=== PATIENT | male | born 1945 | race Caucasian/White ===

== ENCOUNTER 2021-04-16 09:33 | Emergency (ER) | payer MEDICARE, OTHER ==
[~2021-04-16] VITALS: Ht 175.3 cm; Wt 77.1 kg
[~2021-04-16 09:33] MED LIST: CIPRO500 MG PO; CRESTOR5 MG PO; FLAGYL500 MG PO
[2021-04-16 10:25] LABS: EOSINOPHIL 2.3 % (0-7); HCT 45.4 % (42.0-52.0); HGB 15.2 g/dl (13.2-18.0); LYMPHOCYTE 17.3 % (15-48); MCH 32.4 pg (25.0-31.0); MCHC 33.5 g/dL (32.0-36.0); MCV 96.8 fL (78.0-100.0); MONOCYTE 11.2 % (0-12); MPV 10.6 fL (6.0-9.5); NEUTROPHIL 67.9 % (41-80); NRBC 0; PLT 167 K/uL (150-400); RBC 4.69 M/uL (4.70-6.00); RDW 12.5 % (11.5-14.0); WBC 7.8 K/uL (4.0-10.5)
[2021-04-16 11:02] LABS: BUN/CREAT RATIO (CALC) 11.9 RATIO; CREATININE 1.34 mg/dL (0.67-1.17); POTASSIUM 4.2 mmol/L (3.5-5.1)
== END 2021-04-16 11:40 | disposition home or self-care (01) ==
LOC: FER 09:33
PROVIDERS: Emergency Medicine
DX: R10.32 Left lower quadrant pain (principal); G89.29 Other chronic pain; Z88.0 Allergy status to penicillin; Z88.6 Allergy status to analgesic agent
CPT/HCPCS: 36415; 74022; 80048; 85025

== ENCOUNTER 2021-10-06 20:35 | Emergency (ER) | payer MEDICARE, OTHER ==
[2021-10-06 22:21] LABS: BASOPHIL 0.4 % (0-2); EOSINOPHIL 0.5 % (0-7); HCT 37.8 % (42.0-52.0); HGB 12.7 g/dl (13.2-18.0); LYMPHOCYTE 9.5 % (15-48); MCHC 33.6 g/dL (32.0-36.0); MCV 98.2 fL (78.0-100.0); MONOCYTE 7.3 % (0-12); MPV 10.2 fL (6.0-9.5); NRBC 0; PLT 132 K/uL (150-400); RBC 3.85 M/uL (4.70-6.00); RDW 12.7 % (11.5-14.0); WBC 11.7 K/uL (4.0-10.5)
[2021-10-06 22:22] LABS: BILIRUBIN NEGATIVE (NEGATIVE); BLOOD NEGATIVE Ery/uL (NEGATIVE); CLARITY CLEAR (CLEAR); COLOR YELLOW (YELLOW); GLUCOSE (U) NORMAL (NORMAL); LEUKOCYTES NEGATIVE Leu/uL (NEGATIVE); NITRITE NEGATIVE (NEGATIVE); PROTEIN NEGATIVE (NEGATIVE)
[2021-10-06 22:51] LABS: BUN/CREAT RATIO (CALC) 9.3 RATIO; CREATININE 1.4 mg/dL (0.67-1.17); POTASSIUM 4.1 mmol/L (3.5-5.1)
== END 2021-10-06 23:35 | disposition home or self-care (01) ==
LOC: FER 20:35
PROVIDERS: Internal Medicine
DX: R33.9 Retention of urine, unspecified (principal); T50.905A Adverse effect of unspecified drugs, medicaments and biological substances, initial encounter; Z88.0 Allergy status to penicillin; Z88.6 Allergy status to analgesic agent
CPT/HCPCS: 36415; 80048; 81003; 85025

== ENCOUNTER → 2021-10-06 | Day surgery (SDC) | payer MEDICARE, OTHER ==
[~2021-10-06] VITALS: Ht 175.3 cm; Wt 77.1 kg
[~2021-10-06] MED LIST changes: +CARDURA1 MG PO; +CLARITIN10 MG PO; +COQ1050 MG PO; +ONDANSETRON ODT8 MG PO; +PRILOSEC20 MG PO; +ROXICODONE5 MG PO; +VITAMIN D3 PO; +ZOCOR40 MG PO
[2021-10-06 08:05] LABS: HCT 42.7 % (42.0-52.0); HGB 14.6 g/dl (13.2-18.0); MCH 32.9 pg (25.0-31.0); MCHC 34.2 g/dL (32.0-36.0); MCV 96.2 fL (78.0-100.0); MPV 10.1 fL (6.0-9.5); RBC 4.44 M/uL (4.70-6.00); RDW 12.6 % (11.5-14.0); WBC 8.2 K/uL (4.0-10.5)
[2021-10-06 08:15] LABS: ALBUMIN 3.8 g/dL (3.4-5.0); BILIRUBIN - TOTAL 1.3 mg/dL (0.2-1.0); BUN/CREAT RATIO (CALC) 10.2 RATIO; CREATININE 1.47 mg/dL (0.67-1.17); GLOBULIN (CALCULATION) 3.5 g/dL; POTASSIUM 4.1 mmol/L (3.5-5.1); TOTAL PROTEIN 7.3 g/dL (6.4-8.2)
== END | disposition home or self-care (01) ==
LOC: FAS 07:26
PROVIDERS: Surgery
DX: K43.0 Incisional hernia with obstruction, without gangrene (principal); I10 Essential (primary) hypertension; E78.00 Pure hypercholesterolemia, unspecified; Z88.0 Allergy status to penicillin; Z88.5 Allergy status to narcotic agent; Z79.899 Other long term (current) drug therapy
CPT/HCPCS: 36415; 80053; C1781; J1170; J1956; J2370; J2405; J2704; J2710; J3010; J7120